=== PATIENT | female | born 1965 | race Caucasian/White ===

== ENCOUNTER 2018-11-29 08:14 | Day surgery (SDC) | payer OTHER ==
[2018-11-29] MEDS: SOD CHLORIDE 0.9% 1,000 ML IV (08:53)
[2018-11-29] MEDS ORDERED: CEFAZOLIN 2 GM/50 ML (PMX) 50 ML IVPB (09:00)
[2018-11-29] MEDS ORDERED: FENTAnyl 50 MCG/ML VIAL (12:02)
[2018-11-29] MEDS ORDERED: PROPOFOL 20 ML (12:23)
[2018-11-29] MEDS ORDERED: CEFAZOLIN 1 GM INJ (12:23)
[2018-11-29] MEDS ORDERED: GLYCOPYRROLATE 0.4 MG INJ ×2 (12:23→12:53)
[2018-11-29] MEDS ORDERED: SUCCINYLCHOLINE CHLORIDE 100 MG/5 ML SYG IV (12:23)
[2018-11-29] MEDS ORDERED: ONDANSETRON 4 MG INJ (12:52)
[2018-11-29] MEDS ORDERED: NEOSTIGMINE 3 MG/3 ML SYRINGE (12:53)
[2018-11-29] MEDS: BUPIVACAINE 0.25%/EPI (SDV) 30 ML INJ (12:55)
[2018-11-29] MEDS ORDERED: ONDANSETRON 4 MG INJ IV (13:00)
[2018-11-29] MEDS ORDERED: HYDROCODONE/APAP (5/325) TAB PO (13:00)
[2018-11-29] MEDS ORDERED: KETOROLAC 30 MG INJ IV (13:00)
[2018-11-29] MEDS ORDERED: IBUPROFEN 600 MG TAB PO (13:00)
[2018-11-29] MEDS: HYDROCODONE/APAP (5/325) TAB PO (13:21)
== END 2018-11-29 15:11 | disposition home or self-care (01) ==
LOC: SDS 08:14
DX: D17.1 Benign lipomatous neoplasm of skin and subcutaneous tissue of trunk (principal)
CPT/HCPCS: 21933; 88307